=== PATIENT | female | born 1940 | race Caucasian/White ===

== ENCOUNTER 2016-12-05 12:25 | Inpatient (IN) ==
[2016-12-05] MEDS ORDERED: methylPREDNISolone SOD SUC 125 MG/2 ML VIAL IV STA (12:53)
[2016-12-05] MEDS ORDERED: FUROSEMIDE 100 MG/10 ML VIAL IV STA (12:53)
--- NOTE | 2016-12-05 12:56 | EKG Report ---
Stationary ECG Study [facility] Test Date: 12/05/2016 12:53:08 PM Pat Name: RUTHANN EPPERSON Department: Room: Gender: F Senior Engineering Specialist: : 1940 Requested by: German Jamil Order Number: [id number] Reading MD: SRINIVAS BLEVINS Intervals [place] Rate: 67 P: 55 NV: 173 QRS: 58 QRSD: 146 T: 170 QT: 416 QTc: 432 Interpretive Statements ELECTRONIC VENTRICULAR PACEMAKER Electronically Signed On 12-06-16 18:55:06 CDT by SRINIVAS BLEVINS [email or web address]
--- NOTE | 2016-12-05 12:57 | Emergency Department Note ---
Arrival - Arrival Chief Complaint: Shortness of Breath Stated Complaint: shortness of breath ED Nursing Triage Note: Brought in per EMS from [facility] with c/o shortness of breath onset this am. prison staff reports 5 pound weight gain since last pm. Denies pain. Was discharged from hospital one week ago--hospitalized with pneumonia/CHF. Mode of Arrival: Stretcher Limitations: No Limitations Source: Patient, RN Notes Reviewed Time Seen by Provider: 12/05/16 12:49 - History of Present Illness HPI Narrative: Patient is a 76-year-old white female sent from [facility] in [place] for evaluation of shortness of breath. Patient states that she has been short of breath for 1-2 weeks. She has a cough which is nonproductive. She denies chest pain. She has difficulty with exertion bringing on shortness of breath. She denies chills or fever. She is to be a relatively heavy smoker until several months ago. The patient denies nausea or vomiting. She denies diaphoresis. Onset (ago): week(s) (2) Date of Last Menstrual Period: PM Allergies/Adverse Reactions: Allergies Allergy/AdvReac Type Severity Reaction Status Date / Time Gatifloxacin [From Tequin] Allergy Mild Dizziness Verified 12/05/16 12:36 trandolapril Allergy Mild Dizziness Verified 12/05/16 12:36 Verapamil Allergy Mild Dizziness Verified 12/05/16 12:36 Home Medications: Home Medications Medication Instructions Recorded Confirmed Type Calcium (Citrate) [Citracal] 600 mg PO BID 07/06/15 12/05/16 History Multivitamin [One Daily] 1 each PO DAILY 07/06/15 12/05/16 History Potassium Chloride [Klor-Con M20] 10 meq PO DAILY 10/21/15 12/05/16 History Apixaban [Eliquis] 2.5 mg PO BID 10/11/16 12/05/16 History Atorvastatin [Lipitor] 20 mg PO DAILY 10/11/16 12/05/16 History Acetaminophen Tab [Tylenol Tab] 325 mg PO Q4H PRN #0 tablet 10/15/16 12/05/16 Rx Carvedilol 6.25 mg PO BID #0 10/15/16 12/05/16 Rx Docusate Sodium Cap [Colace Cap] 100 mg PO BID capsule 10/15/16 12/05/16 Rx Furosemide 40 mg PO DAILY #0 10/15/16 12/05/16 Rx Pantoprazole Tab [Protonix Tab] 40 mg PO DAILY tablet 10/15/16 12/05/16 Rx Spironolactone [Aldactone] 25 mg PO DAILY #30 tablet 11/21/16 12/05/16 Rx Review of System - Review of System ROS unobtainable: due to dementia 12 point system: reviewed and no additional remarkable complaints except as stated - Review of System Constitutional: Absent: chills, fever Respiratory: Present: cough, respiratory distress, wheezing Cardiovascular: Absent: chest pain, palpitations Gastrointestinal: Absent: abdominal pain, nausea, vomiting Medical,Surgical,& Family Hx - Medical History Cardio: History of: CHF, Hypertension, Pacemaker, Cardiovascular Problems (DR ESPINOZA, MEDICAL RECORD HAS [employer] DR NGO FOLLOWING) Neurology: History of: Cerebrovascular Accident No history of: Seizures HEENT: History of: Eye Problem (GLASSES), Dental Problems Endocrine: History of: Dyslipidemia, Thyroid Disorder Respiratory: History of: COPD Genitourinary: History of: Bladder Problem Gastrointestinal: History of: Liver Problems (LIVER MASS, LIVER CIRRHOSIS) Musculoskeletal: History of: Back/Neck Problems (4 BROKEN VERTEBRAE), Osteoporosis, Musculoskeletal Problems (BROKEN RIGHT HIP) - Surgical History HEENT Surgeries: Surgical HX of: Thyroid Surgery (PARATHYROID REMOVED) Abdominal Surgeries: Surgical HX of: Abdominal Surgery, Appendectomy, Colonoscopy Reproductive Surgeries: Surgical HX of;: Gynecologic Surgery, Hysterectomy Orthopedic Surgeries: Surgical HX of;: Orthopedic Surgery (ORIF of right femur fracture), Total Knee Replacement (LEFT KNEE) - Family History Family History: Reports;: Family Cancer (MOTHER) - Social History Smoking Status: Former smoker Frequency of Alcohol Use: None Type of Drug Use: None Functional capacity: wheelchair bound Exam Vital Signs: Vital Signs Temperature 97.5 F L 12/05/16 12:25 Pulse Rate 84 12/05/16 12:25 Respiratory Rate 26 H 12/05/16 12:25 Blood Pressure 117/72 12/05/16 12:25 O2 Sat by Pulse Oximetry 97 12/05/16 12:25 GENERAL: This is a chronically ill-appearing white female in no apparent distress. VITAL SIGNS: Reviewed HEENT: Temporal wasting is present. Pupils are equal round react to light. Extraocular movements are intact. Oropharynx is benign with moist mucous membranes. NECK: Neck is soft and supple without tenderness. There are no masses. There is no lymphadenopathy. LUNGS: Expiratory wheezes in all lung subramanian with prolongation of expiratory phase. Chest rises symmetrically. There is no chest wall tenderness. CV: Heart is regular rate and rhythm without murmurs rubs or gallops. ABDOMEN: Abdomen is soft, nontender to palpation. There are no abdominal abnormal masses palpated. Liver edge is palpable about 2 fingerbreadths below the right costal margin. Bowel sounds are present and active. SKIN: Skin is warm and dry. No rash. EXTREMITIES: Patient has full range of motion without tenderness. There is 1+ pitting pedal edema. NEUROLOGIC: Awake alert and oriented to person and situation. Patient is disoriented to place and time. Cranial nerves II through XII are grossly intact. Motor is 4 over 5 in all extremities bilaterally. Course - Consultations Consultation #1: Discussed with hospitalist. Patient will be admitted to their service. Time: 13:57 Results - Labs CBC & BMP: 12/05/16 12:41 12/05/16 12:41 Lab Results: I have reviewed the patients labs Labs: Laboratory Tests 12/05/16 12/05/16 12:41 13:09 ABG pH 7.397 ABG pCO2 39.5 ABG pO2 119.0 H ABG HCO3 24.1 ABG Total CO2 22.3 L ABG O2 Saturation 98.9 ABG Base Excess -0.4 Magnesium 1.9 Troponin I 0.066 H Laboratory Tests 12/05/16 12/05/16 12:41 12:41 Troponin I 0.066 H B-Natriuretic Peptide 1041 H - EKG EKG results: interpreted by ERMD - Impressions EKG: Electronic ventricular pacemaker with a rate of 67 no further interpretation possible. - Diagnostic Findings Procedure: Chest x-ray: image reviewed by me (Increased pulmonary markings bilaterally with bilateral pleural effusions) Disposition Clinical Impression: Congestive heart failure Case discussed with: patient Condition: Stable Time of Disposition: 13:57
[2016-12-05] MEDS ORDERED: ALBUTEROL 2.5 MG/3 ML NEB RESP TX SCH (13:00)
[2016-12-05 13:04] LABS: Basophils % 0.4 % (0.0-0.8); Eosinophils # 0.3 10*3/uL (0.0-0.87); Eosinophils % 4.9 % (0.00-10.9); Hematocrit 30.1 VOL% (35.7-47.0); Hemoglobin 9.6 GM/DL (12.0-16.0); Immature Granulocytes % 0.4 %; Immature Granulocytes Absolute 0.02 #; Lymphocytes # 1.3 10*3/uL (1.4-4.0); Lymphocytes % 24.1 % (21.3-54.2); Mean Corpuscular HGB Conc 31.9 GM/DL (32-36); Mean Corpuscular Hemoglobin 32 PG (27-34); Mean Corpuscular Volume 99.7 FL (87-102); Mean Platelet Volume 11.1 FL (9.6-12.0); Monocytes # 0.6 10*3/uL (0.11-0.8); Monocytes % 11.8 % (1.7-12.7); Neutrophils # 3.1 10*3/uL (1.4-7.4); Neutrophils % 58.4 % (38.7-73.9); Platelet Count 80 T/CUMM (130-400); Red Blood Count 3.02 MC/CUMM (3.8-5.5); Red Cell Distribution Width 17.5 % (9.3-17.3); White Blood Count 5.3 T/CUMM (4-12)
[2016-12-05 13:07] LABS: INR 1.2; PT Patient Result 12.8 SECS; Partial Thromboplastin Time 32.6 SECS (0-40)
--- NOTE | 2016-12-05 13:12 | XRay Report ---
Portable chest. Indication: Shortness of breath. Comparison: November 18, 2016. The heart borders are not well-defined. The heart is probably normal in size. Cardiac hardware appears to be in satisfactory position. There is uncoiling of the thoracic aorta with calcification in the aortic knob. The right hilum is mildly prominent. Right-sided adenopathy cannot be excluded. There are bilateral basilar infiltrates and pleural effusions. The pulmonary vasculature is prominent. There are bilateral rib fractures and degenerative changes are seen at the right shoulder. Impression: Worsening findings which may be related to congestive heart failure. PROCEDURE INTERPRETED AT [facility] DEPARTMENT OF RADIOLOGY Final Report Signed by: Dr. Suyapa Fernandez
[2016-12-05 13:14] LABS: ABG Base Excess -0.4 MMOL/L (-2.5-2.5); ABG HCO3 24.1 MMOL/L (20-26); ABG Oxygen Saturation 98.9 % (95-100); ABG PCO2 39.5 MM HG (35-48); ABG PH 7.397 (7.35-7.45); ABG TCO2 22.3 MMOL/L (23-27)
[2016-12-05 13:17] LABS: Magnesium 1.9 MG/DL (1.8-2.4)
[2016-12-05 13:18] LABS: Troponin I Only 0.066 NG/ML (0.00-0.045)
[2016-12-05] MEDS ORDERED: ENOXAPARIN 60 MG/0.6 ML SYRINGE SUBCUT STA (13:27)
[2016-12-05] MEDS ORDERED: ASPIRIN 325 MG TABLET PO STA (13:27)
[2016-12-05 13:47] LABS: Albumin 2.3 G/DL (3.4-5.0); Calcium 8.3 MG/DL (8.5-10.1); Osmolality,Calculated 290.7 MOS/KG (273-304); Potassium 4.6 MMOL/L (3.5-5.1); Total Protein 6.4 G/DL (6.4-8.3)
[2016-12-05] MEDS ORDERED: FUROSEMIDE 40 MG/4 ML VIAL ONE (13:59)
[2016-12-05] MEDS ORDERED: ENOXAPARIN 60 MG/0.6 ML SYRINGE ONE (13:59)
[2016-12-05] MEDS ORDERED: FUROSEMIDE 20 MG/2 ML VIAL ONE (13:59)
[2016-12-05] MEDS ORDERED: ASPIRIN 325 MG TABLET ONE (14:00)
[2016-12-05] MEDS ORDERED: methylPREDNISolone SOD SUC 125 MG/2 ML VIAL ONE (14:00)
--- NOTE | 2016-12-05 14:31 | Hospitalist History & Physical ---
<Janet Garza - Last Filed: 12/05/16 14:34> Assessment and Plan (1) Congestive heart failure Status: Acute Assessment and plan: We will diurese; insert saha catheter for accurate intake and output. We will obtain Echo to assess heart function. Will start VTE prophylaxis. Current Visit: Yes (2) Hypertension Status: Chronic Assessment and plan: Will monitor and manage. Current Visit: No (3) Elevated troponin Status: Acute Assessment and plan: Troponin 0.006 at admission. We will obtain serial cardiac enzymes; if positive ; we will consult cardiology. Current Visit: No History of Present Illness Chief complaint: shortness of breath History of present illness: This is a very unfortunate 76 year old female that presented to the ED at [facility] from [facility] for evaluation of shortness of breath. The patient has a rather impressive medical history significant for cerebral vascular accident, atrial fibrillation, chronic obstructive pulmonary disease, congestive heart failure, dyslipidemia, hypertension, abdominal aortic aneurysm, osteoporosis, and liver cirrhosis. She was a past surgical history of left total knee replacement, appendectomy, CLAY of the right femur, and parathyroidectomy. The [facility] staff reported an acute onset of symptoms on this morning. In addition, the staff reported a marked increase of weight overnight of 5 pounds. At the time of presentation, labs were obtained which revealed a BUN of 54 and creatinine of 1.50 and BNP of 1041. Her cardiac enzymes were elevated at 0.066. Chest radiograph was obtained which revealed increased pulmonary markings bilaterally with bilateral pleural effusions. She was given Lasix and breathing treatments in the ED. In addition, the patient was noted to have pitting edema and wheezing through the lung subramanian bilaterally. After brief discussion with Dr. Bright and Dr. Carias, the patient will be admitted to the hospitalist service for continuation of care. Home Medications Medication Instructions Recorded Confirmed Type Calcium (Citrate) [Citracal] 600 mg PO BID 07/06/15 12/05/16 History Multivitamin [One Daily] 1 each PO DAILY 07/06/15 12/05/16 History Potassium Chloride [Klor-Con M20] 10 meq PO DAILY 10/21/15 12/05/16 History Apixaban [Eliquis] 2.5 mg PO BID 10/11/16 12/05/16 History Atorvastatin [Lipitor] 20 mg PO DAILY 10/11/16 12/05/16 History Acetaminophen Tab [Tylenol Tab] 325 mg PO Q4H PRN #0 tablet 10/15/16 12/05/16 Rx Carvedilol 6.25 mg PO BID #0 10/15/16 12/05/16 Rx Docusate Sodium Cap [Colace Cap] 100 mg PO BID capsule 10/15/16 12/05/16 Rx Furosemide 40 mg PO DAILY #0 10/15/16 12/05/16 Rx Pantoprazole Tab [Protonix Tab] 40 mg PO DAILY tablet 10/15/16 12/05/16 Rx Spironolactone [Aldactone] 25 mg PO DAILY #30 tablet 11/21/16 12/05/16 Rx Allergies Allergy/AdvReac Type Severity Reaction Status Date / Time Gatifloxacin [From Tequin] Allergy Mild Dizziness Verified 12/05/16 12:36 trandolapril Allergy Mild Dizziness Verified 12/05/16 12:36 Verapamil Allergy Mild Dizziness Verified 12/05/16 12:36 Medical,Surgical,& Family Hx - Medical History Cardio: History of: CHF, Hypertension, Pacemaker, Cardiovascular Problems (DR ESPINOZA, MEDICAL RECORD HAS [employer] DR NGO FOLLOWING) Neurology: History of: Cerebrovascular Accident No history of: Seizures HEENT: History of: Eye Problem (GLASSES), Dental Problems Endocrine: History of: Dyslipidemia, Thyroid Disorder Respiratory: History of: COPD Genitourinary: History of: Bladder Problem Gastrointestinal: History of: Liver Problems (LIVER MASS, LIVER CIRRHOSIS) Musculoskeletal: History of: Back/Neck Problems (4 BROKEN VERTEBRAE), Osteoporosis, Musculoskeletal Problems (BROKEN RIGHT HIP) - Surgical History HEENT Surgeries: Surgical HX of: Thyroid Surgery (PARATHYROID REMOVED) Abdominal Surgeries: Surgical HX of: Abdominal Surgery, Appendectomy, Colonoscopy Reproductive Surgeries: Surgical HX of;: Gynecologic Surgery, Hysterectomy Orthopedic Surgeries: Surgical HX of;: Orthopedic Surgery (ORIF of right femur fracture), Total Knee Replacement (LEFT KNEE) - Family History Family History: Reports;: Family Cancer (MOTHER) - Social History Smoking Status: Former smoker Frequency of Alcohol Use: None Type of Drug Use: None 12 point system: reviewed and no additional remarkable complaints except as stated Exam - Constitutional Vitals: Period Temp Pulse Resp BP Sys/Andino Pulse Ox Last 24 Hr 97.5 F 84 26 117/72 97 General appearance: normal weight, no acute distress - Head Head exam: Present: normal inspection, normocephalic, atraumatic - Eye Eye exam: Present: EOMI. Absent: conjunctival injection, nystagmus Pupils: Present: NILE, normal accommodation - ENT ENT exam: Present: normal exam, normal external ear exam, normal oropharynx - Neck Neck exam: Present: normal inspection. Absent: lymphadenopathy, meningismus, tenderness, thyromegaly - Respiratory Respiratory exam: Present: accessory muscle use, wheezes - Cardiovascular Cardiovascular exam: Present: irregular rhythm (atrial fib/ rate controlled) - GI/Abdominal GI/Abdominal exam: Present: normal bowel sounds, soft - Extremities Exam Extremities exam: Present: edema (+3 edema noted to bilateral lower extremeties) - Back Exam Back exam: Present: normal inspection - Neurological Exam Neurological exam: Present: alert, altered - Psychiatric Psychiatric exam: Present: normal affect - Skin Skin exam: Present: normal color Results - Labs CBC & BMP: 12/05/16 12:41 12/05/16 12:41 Lab Results: I have reviewed the past 24 hour labs Quality Measures - VTE Deep Vein Thrombosis/Pulmonary Embolism Present on Admission: No <Arsh Carias - Last Filed: 12/05/16 16:39> History of Present Illness History of present illness: Patient seen and examined along with IT ARCHITECTURE CONSULTANT Greg, agree with history, assessment and plan as documented. Patient was admitted last month with pretty much this same picture. She reports 1-2 weeks of sob, with worsening today. She has chronic ble edema, she does not know if this is different. snf reports 5 pound weight gain since yesterday. On exam, lungs are clear and significant ble edema. CXR with pulmonary infiltrates/edema. Will give lasix 40 BID IV. Will not start abx today, pt afebrile with no leukocytosis. Repeat CXR in am, if not better might consider antibiotics. Exam - Constitutional Vitals: Period Temp Pulse Resp BP Sys/Andino Pulse Ox Last 24 Hr 98.8 F 76 22-26 161/80 95 Results - Labs CBC & BMP: 12/05/16 12:41 12/05/16 12:41
[2016-12-05 15:36] LABS: Apearance,Urine CLEAR (Clear); Bilirubin,Urine Negative (Negative); Blood, Urine Negative (Negative); Glucose,Urine (UA) Negative (Negative); Ketones,Urine Negative (Negative); Nitrite,Urine Negative (Negative); Protein,Urine Negative; RBC,Urine 1 /HPF (0-4); Urine Color Yellow (Yellow); Urine Urobilinogen < 2.0 EU/DL (0.2-1.0); WBC,Urine 3 /HPF (0-6)
[2016-12-05] MEDS ORDERED: ACETAMINOPHEN 325 MG TABLET PO PRN (16:32)
[2016-12-05] MEDS: CALCIUM (CITRATE) 200 MG TABLET PO SCH (22:41)
[2016-12-05] MEDS: DOCUSATE SODIUM 100 MG CAPSULE PO SCH (22:41)
[2016-12-05] MEDS: APIXABAN 2.5 MG TABLET PO SCH (22:42)
[2016-12-05] MEDS: CARVEDILOL 6.25 MG TABLET PO SCH (22:47)
[2016-12-06 04:21] LABS: Hematocrit 25.3 VOL% (35.7-47.0); Hemoglobin 8.3 GM/DL (12.0-16.0); Immature Granulocytes % 0.3 %; Immature Granulocytes Absolute 0.01 #; Lymphocytes # 0.8 10*3/uL (1.4-4.0); Lymphocytes % 20.3 % (21.3-54.2); Mean Corpuscular HGB Conc 32.8 GM/DL (32-36); Mean Corpuscular Hemoglobin 32 PG (27-34); Mean Corpuscular Volume 96.9 FL (87-102); Mean Platelet Volume 11.4 FL (9.6-12.0); Monocytes # 0.2 10*3/uL (0.11-0.8); Monocytes % 6.2 % (1.7-12.7); Neutrophils # 2.7 10*3/uL (1.4-7.4); Neutrophils % 73.2 % (38.7-73.9); Platelet Count 86 T/CUMM (130-400); Red Blood Count 2.61 MC/CUMM (3.8-5.5); Red Cell Distribution Width 17.7 % (9.3-17.3); White Blood Count 3.7 T/CUMM (4-12)
[2016-12-06 04:44] LABS: Band Neutrophils 3 % (0-10); Lymphocytes 13 % (20-55); Platelet Estimate Decreased; Segmented Neutrophils 77 % (50-85); Total Cells Counted 100
[2016-12-06 04:45] LABS: Hypochromasia 2+
[2016-12-06 04:51] LABS: Albumin 2.1 G/DL (3.4-5.0); Bilirubin,Total 1.5 MG/DL (0.2-1.0); Magnesium 1.9 MG/DL (1.8-2.4); Osmolality,Calculated 296.5 MOS/KG (273-304); Phosphorous 2.8 MG/DL (2.5-4.9); Potassium 4.5 MMOL/L (3.5-5.1)
--- NOTE | 2016-12-06 08:45 | Hospitalist Progress Note ---
Assessment and Plan (1) Diastolic CHF, acute on chronic Status: Acute Assessment and plan: Impression: 1. Diastolic CHF, acute on chronic 2. Pancytopenia, likely due to known diagnosis of cirrhosis 3. Atrial fibrillation, status post pacemaker Plan: Continue diuresis as she tolerates. She is already azotemic. Revise medications. Will need to discuss CODE STATUS with family members. This note was completed using [employer] voice recognition software. There may be database management specialist errors as a result. Current Visit: Yes Hospitalist: Subjective Interval history: Follow-up probable acute episode of diastolic congestive heart failure. Follow-up diastolic congestive heart failure History and physical is reviewed. The patient apparently has numerous chronic medical problems, including prior admissions for similar symptoms. She also is apparently pacemaker dependent, with a history of third-degree heart block. She presented from her local senior care for evaluation of some weight gain and worsening dyspnea. Chest x-ray showed pulmonary vascular congestion. I reviewed her echocardiogram from late last year, and she had a normal ejection fraction. Diastolic dysfunction was not mentioned, but it was mentioned in a cardiology consultation note. 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 Therefore, history taking is difficult. She also apparently is already azotemic, likely due to ongoing diuresis. Chest x- ray from last June was clear, but it looks like she has had pulmonary vascular congestion off and on since then. Exam - Constitutional Vitals: Period Temp Pulse Resp BP Sys/Andino Pulse Ox Last 24 Hr 98.1 F-98.8 F 75-83 20-26 102-161/55-80 95-100 Vital signs are noted above. She is a thin chronically ill white lady. Heart is regular and probably paced. She has a 2/6 systolic ejection murmur. Neck vein distention is evident supine. She has a few rhonchi in the chest. There are multiple scattered ecchymoses. She is awake and attempts conversation, but she has a nonfluent aphasia Results - Labs CBC & BMP: 12/06/16 03:37 12/06/16 03:37 Lab Results: I have reviewed the past 24 hour labs (She appears to have pancytopenia, as well as a chronically elevated BUN and creatinine.) Quality Measures - VTE Deep Vein Thrombosis/Pulmonary Embolism Present on Admission: No
--- NOTE | 2016-12-06 10:12 | XRay Report ---
XR chest 1V portable Indication: COPD Comparison: 05 Dec 2016 Findings: The heart and mediastinum are stable in size and configuration. The pulmonary vascularity is increased with bilateral increased interstitial lung density slightly increased from previous. No other lung infiltrates, effusions, pneumothorax or other abnormality is demonstrated. Impression: Findings suggest increasing cardiac decompensation. PROCEDURE INTERPRETED AT [facility] DEPARTMENT OF RADIOLOGY Final Report Signed by: Dr. Devang Andujar
[2016-12-06] MEDS: FUROSEMIDE 40 MG/4 ML VIAL IV SCH ×2 (10:53→16:52)
[2016-12-06] MEDS: DOCUSATE SODIUM 100 MG CAPSULE PO SCH ×2 (10:54→20:49)
[2016-12-06] MEDS: SPIRONOLACTONE 25 MG TABLET PO SCH (10:54)
[2016-12-06] MEDS: ATORVASTATIN 20 MG TABLET PO SCH (10:54)
[2016-12-06] MEDS: CALCIUM (CITRATE) 200 MG TABLET PO SCH ×2 (10:54→20:49)
[2016-12-06] MEDS: APIXABAN 2.5 MG TABLET PO SCH ×2 (10:55→20:49)
[2016-12-06] MEDS: CARVEDILOL 6.25 MG TABLET PO SCH ×2 (10:55→20:49)
[2016-12-06] MEDS: DESITIN 4OZ/NYSTATIN 15 GRAM MIXTURE PASTE TOP SCH ×2 (14:39→21:43)
[2016-12-07 06:16] LABS: Calcium 8.7 MG/DL (8.5-10.1); Osmolality,Calculated 294.3 MOS/KG (273-304); Potassium 4.3 MMOL/L (3.5-5.1)
[2016-12-07] MEDS ORDERED: FUROSEMIDE 20 MG/2 ML VIAL ONE (09:12)
[2016-12-07] MEDS: FUROSEMIDE 40 MG/4 ML VIAL IV SCH ×2 (09:43→15:36)
[2016-12-07] MEDS: APIXABAN 2.5 MG TABLET PO SCH ×2 (09:43→21:25)
[2016-12-07] MEDS: ATORVASTATIN 20 MG TABLET PO SCH (09:43)
[2016-12-07] MEDS: DOCUSATE SODIUM 100 MG CAPSULE PO SCH ×2 (09:44→21:25)
[2016-12-07] MEDS: CARVEDILOL 6.25 MG TABLET PO SCH ×2 (09:44→21:25)
[2016-12-07] MEDS: SPIRONOLACTONE 25 MG TABLET PO SCH (09:44)
--- NOTE | 2016-12-07 10:39 | Hospitalist Progress Note ---
Assessment and Plan (1) Diastolic CHF, acute on chronic Status: Acute Assessment and plan: Impression: 1. Diastolic CHF, acute on chronic 2. Pancytopenia, likely due to known diagnosis of cirrhosis 3. Atrial fibrillation, status post pacemaker Plan: Continue diuresis as she tolerates. She is already azotemic. Revise medications. Recheck lab in the morning. This note was completed using [employer] voice recognition software. There may be hog sticker errors as a result. Current Visit: Yes Hospitalist: Subjective Interval history: Follow-up acute on chronic diastolic congestive heart failure, cirrhosis, and malnutrition. The patient says that her dyspnea is a little better. She continues on IV diuretics. She denies any chest discomfort. Exam - Constitutional Vitals: Period Temp Pulse Resp BP Sys/Andino Pulse Ox Last 24 Hr 97.3 F-98.5 F 58-88 19-22 105-142/53-70 94-100 Vital signs are noted above. Heart is regular with distant tones and no murmur. She has rales in both bases. Abdomen is protuberant with positive bowel sounds. She does not have any significant peripheral edema. She is awake and alert. Results - Labs CBC & BMP: 12/06/16 03:37 12/07/16 05:09 Lab Results: I have reviewed the past 24 hour labs (Kidney function is stable) Quality Measures - VTE Deep Vein Thrombosis/Pulmonary Embolism Present on Admission: No
[2016-12-07] MEDS: CALCIUM (CITRATE) 200 MG TABLET PO SCH ×2 (12:18→21:25)
[2016-12-07] MEDS: DESITIN 4OZ/NYSTATIN 15 GRAM MIXTURE PASTE TOP SCH ×2 (12:18→21:25)
[2016-12-08 07:29] LABS: Calcium 8.7 MG/DL (8.5-10.1); Osmolality,Calculated 294.1 MOS/KG (273-304); Potassium 4.6 MMOL/L (3.5-5.1)
[2016-12-08] MEDS: ATORVASTATIN 20 MG TABLET PO SCH (09:10)
[2016-12-08] MEDS: SPIRONOLACTONE 25 MG TABLET PO SCH (09:10)
[2016-12-08] MEDS: CARVEDILOL 6.25 MG TABLET PO SCH ×2 (09:10→20:58)
[2016-12-08] MEDS: APIXABAN 2.5 MG TABLET PO SCH ×2 (09:10→20:58)
[2016-12-08] MEDS: DOCUSATE SODIUM 100 MG CAPSULE PO SCH ×2 (09:10→20:58)
[2016-12-08] MEDS: FUROSEMIDE 40 MG/4 ML VIAL IV SCH ×2 (09:17→17:17)
[2016-12-08] MEDS: CALCIUM (CITRATE) 200 MG TABLET PO SCH ×2 (09:18→20:58)
[2016-12-08] MEDS: DESITIN 4OZ/NYSTATIN 15 GRAM MIXTURE PASTE TOP SCH ×2 (09:18→20:59)
--- NOTE | 2016-12-08 11:49 | Hospitalist Progress Note ---
Assessment and Plan (1) Diastolic CHF, acute on chronic Status: Acute Assessment and plan: Impression: 1. Diastolic CHF, acute on chronic 2. Pancytopenia, likely due to known diagnosis of cirrhosis 3. Atrial fibrillation, status post pacemaker Plan: Continue diuresis as she tolerates. She is already azotemic. Recheck chest x- ray in the morning. This note was completed using [employer] voice recognition software. There may be packing house laborer errors as a result. Current Visit: Yes Hospitalist: Subjective Interval history: Follow-up acute on chronic diastolic heart failure, pancytopenia, atrial fibrillation. The patient continues with what appears to be some dyspnea at rest. 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 Chest x-ray from the other day showed worsening pulmonary vascular congestion despite diuresis with 2 diuretics Exam - Constitutional Vitals: Period Temp Pulse Resp BP Sys/Andino Pulse Ox Last 24 Hr 97.6 F-98.9 F 60-63 16-20 107-129/54-73 95-98 Vital signs are noted above. Heart is regular with a soft systolic murmur. I do not hear a gallop. She has neck vein distention at 30. She has scattered rales. I could not get her to set up for examination of the posterior lung subramanian. Abdomen is protuberant. She is awake and attempts conversation Results - Labs CBC & BMP: 12/06/16 03:37 12/08/16 04:29 Quality Measures - VTE Deep Vein Thrombosis/Pulmonary Embolism Present on Admission: No
[2016-12-09 07:13] LABS: Calcium 9.3 MG/DL (8.5-10.1); Potassium 4.1 MMOL/L (3.5-5.1)
--- NOTE | 2016-12-09 08:25 | XRay Report ---
XR chest 1V portable Indication: Pleural effusion Comparison: Chest x-ray dated December 06, 2016 Technique: Single frontal view of the chest Findings: Cardiomediastinal silhouette is stable in configuration. Cardiac pacemaker apparatus again noted. Interval progressed atelectasis/consolidation within the left lower lung as well as within the right lung base with probable small left pleural fluid. Osseous and surrounding soft tissue structures appear grossly unchanged. Osteopenia and old right-sided rib fractures noted. IMPRESSION: As above. PROCEDURE INTERPRETED AT [facility] DEPARTMENT OF RADIOLOGY Final Report Signed by: Dr Shane Calhoun
[2016-12-09] MEDS: FUROSEMIDE 40 MG/4 ML VIAL IV SCH ×2 (08:40→16:48)
[2016-12-09] MEDS: APIXABAN 2.5 MG TABLET PO SCH ×2 (08:42→20:46)
[2016-12-09] MEDS: SPIRONOLACTONE 25 MG TABLET PO SCH (08:42)
[2016-12-09] MEDS: CALCIUM (CITRATE) 200 MG TABLET PO SCH ×2 (08:42→20:46)
[2016-12-09] MEDS: ATORVASTATIN 20 MG TABLET PO SCH (08:42)
[2016-12-09] MEDS: CARVEDILOL 6.25 MG TABLET PO SCH ×2 (08:42→20:46)
[2016-12-09] MEDS: DOCUSATE SODIUM 100 MG CAPSULE PO SCH ×2 (08:43→20:46)
[2016-12-09] MEDS: DESITIN 4OZ/NYSTATIN 15 GRAM MIXTURE PASTE TOP SCH ×2 (08:47→20:48)
--- NOTE | 2016-12-09 17:20 | Hospitalist Progress Note ---
Assessment and Plan - Time spent with patient Time spent with patient: Greater than 30 minutes (1) Diastolic CHF, acute on chronic Status: Acute Assessment and plan: Continue diuresis patient is tolerating well. Current Visit: Yes (2) Paroxysmal atrial fibrillation Status: Chronic Assessment and plan: Continue anti-coagulation. Current Visit: No (3) Thrombocytopenia Status: Chronic Assessment and plan: Stable. Current Visit: No Hospitalist: Subjective Interval history: She has no complaints this morning and states her breathing is back to normal. Exam - Constitutional Vitals: Period Temp Pulse Resp BP Sys/Andino Pulse Ox Last 24 Hr 97.7 F-99.4 F 60-64 20-20 108-128/56-64 92-100 General appearance: no acute distress - Head Head exam: Present: normocephalic, atraumatic - Eye Eye exam: Present: EOMI Pupils: Present: NILE - ENT ENT exam: Present: normal exam - Neck Neck exam: Present: normal inspection - Respiratory Respiratory exam: Present: clear to auscultation bilaterally. Absent: rhonchi, wheezes - Cardiovascular Cardiovascular exam: Present: regular rate and rhythm. Absent: gallop, rubs, systolic murmur - GI/Abdominal GI/Abdominal exam: Present: normal bowel sounds, soft. Absent: distended, firm , guarding, tenderness, rebound - Extremities Exam Extremities exam: Present: normal inspection. Absent: calf tenderness, edema Results - Labs CBC & BMP: 12/06/16 03:37 12/09/16 04:36 Lab Results: I have reviewed the past 24 hour labs Quality Measures - VTE Deep Vein Thrombosis/Pulmonary Embolism Present on Admission: No
[2016-12-09 17:35] LABS: Apearance,Urine CLOUDY (Clear); Bilirubin,Urine Negative (Negative); Blood, Urine Moderate mg/dL (Negative); Glucose,Urine (UA) Negative (Negative); Ketones,Urine Negative (Negative); Nitrite,Urine Positive (Negative); Protein,Urine 30 MG/DL; RBC,Urine 14 /HPF (0-4); Urine Color Yellow (Yellow); Urine Specific Gravity 1.006 (1.001-1.035); Urine Urobilinogen < 2.0 EU/DL (0.2-1.0); WBC,Urine 2452 /HPF (0-6)
[2016-12-10 06:23] LABS: Basophils % 0.3 % (0.0-0.8); Eosinophils # 0.5 10*3/uL (0.0-0.87); Eosinophils % 7.5 % (0.00-10.9); Hematocrit 30.1 VOL% (35.7-47.0); Hemoglobin 9.8 GM/DL (12.0-16.0); Immature Granulocytes % 0.3 %; Immature Granulocytes Absolute 0.02 #; Lymphocytes # 1.6 10*3/uL (1.4-4.0); Lymphocytes % 25.3 % (21.3-54.2); Mean Corpuscular HGB Conc 32.6 GM/DL (32-36); Mean Corpuscular Hemoglobin 32 PG (27-34); Mean Corpuscular Volume 96.8 FL (87-102); Mean Platelet Volume 12.7 FL (9.6-12.0); Monocytes # 0.8 10*3/uL (0.11-0.8); Monocytes % 12.3 % (1.7-12.7); Neutrophils # 3.5 10*3/uL (1.4-7.4); Neutrophils % 54.3 % (38.7-73.9); Platelet Count 82 T/CUMM (130-400); Red Blood Count 3.11 MC/CUMM (3.8-5.5); White Blood Count 6.4 T/CUMM (4-12)
[2016-12-10 06:47] LABS: Hypochromasia 1+; Target Cells Slight
[2016-12-10 06:58] LABS: Calcium 9.6 MG/DL (8.5-10.1); Osmolality,Calculated 295.1 MOS/KG (273-304); Potassium 4.1 MMOL/L (3.5-5.1)
[2016-12-10] MEDS ORDERED: FUROSEMIDE 40 MG/4 ML VIAL IV ONE (09:18)
[2016-12-10] MEDS: SPIRONOLACTONE 25 MG TABLET PO SCH (09:55)
[2016-12-10] MEDS: CALCIUM (CITRATE) 200 MG TABLET PO SCH ×2 (09:55→21:05)
[2016-12-10] MEDS: DOCUSATE SODIUM 100 MG CAPSULE PO SCH ×2 (09:55→21:06)
[2016-12-10] MEDS: CARVEDILOL 6.25 MG TABLET PO SCH ×2 (09:55→21:06)
[2016-12-10] MEDS: APIXABAN 2.5 MG TABLET PO SCH ×2 (09:55→21:06)
[2016-12-10] MEDS: ATORVASTATIN 20 MG TABLET PO SCH (09:55)
[2016-12-10] MEDS: DESITIN 4OZ/NYSTATIN 15 GRAM MIXTURE PASTE TOP SCH ×2 (09:56→21:06)
[2016-12-10] MEDS: FUROSEMIDE 40 MG/4 ML VIAL IV SCH (13:50)
--- NOTE | 2016-12-10 15:43 | Hospitalist Progress Note ---
Assessment and Plan - Time spent with patient Time spent with patient: Greater than 30 minutes (1) Diastolic CHF, acute on chronic Status: Acute Assessment and plan: Continue diuresis patient is tolerating well. Current Visit: Yes (2) Paroxysmal atrial fibrillation Status: Chronic Assessment and plan: Continue anti-coagulation. Current Visit: No (3) Thrombocytopenia Status: Chronic Assessment and plan: Stable. Current Visit: No (4) UTI (urinary tract infection) Status: Acute Assessment and plan: Start antibiotics. Current Visit: Yes Hospitalist: Subjective Interval history: No complaints or overnight events. Exam - Constitutional Vitals: Period Temp Pulse Resp BP Sys/Andino Pulse Ox Last 24 Hr 97.9 F-99.5 F 60-60 18-20 108-132/62-84 91-96 General appearance: no acute distress - Head Head exam: Present: normocephalic, atraumatic - Eye Eye exam: Present: EOMI Pupils: Present: NILE - ENT ENT exam: Present: normal exam - Neck Neck exam: Present: normal inspection - Respiratory Respiratory exam: Present: clear to auscultation bilaterally. Absent: rhonchi, wheezes - Cardiovascular Cardiovascular exam: Present: regular rate and rhythm. Absent: gallop, rubs, systolic murmur - GI/Abdominal GI/Abdominal exam: Present: normal bowel sounds, soft. Absent: distended, firm , guarding, tenderness, rebound - Extremities Exam Extremities exam: Present: normal inspection. Absent: calf tenderness, edema Results - Labs CBC & BMP: 12/10/16 04:06 12/10/16 04:06 Lab Results: I have reviewed the past 24 hour labs Quality Measures - VTE Deep Vein Thrombosis/Pulmonary Embolism Present on Admission: No
[2016-12-10] MEDS: cefTRIAXone 2,000 MG in SODIUM CHLORIDE 0.9% 100 ML IV SCH (17:21)
[2016-12-11 04:38] LABS: Basophils % 0.3 % (0.0-0.8); Eosinophils # 0.5 10*3/uL (0.0-0.87); Hematocrit 30.1 VOL% (35.7-47.0); Hemoglobin 9.9 GM/DL (12.0-16.0); Immature Granulocytes % 0.3 %; Immature Granulocytes Absolute 0.02 #; Lymphocytes # 1.6 10*3/uL (1.4-4.0); Lymphocytes % 25.6 % (21.3-54.2); Mean Corpuscular HGB Conc 32.9 GM/DL (32-36); Mean Corpuscular Hemoglobin 32 PG (27-34); Mean Corpuscular Volume 98.4 FL (87-102); Monocytes # 0.8 10*3/uL (0.11-0.8); Monocytes % 12.9 % (1.7-12.7); Neutrophils # 3.2 10*3/uL (1.4-7.4); Neutrophils % 52.9 % (38.7-73.9); Red Blood Count 3.06 MC/CUMM (3.8-5.5); Red Cell Distribution Width 17.9 % (9.3-17.3); White Blood Count 6.1 T/CUMM (4-12)
[2016-12-11 04:42] LABS: Platelet Count 88 T/CUMM (130-400)
[2016-12-11 05:07] LABS: Hypochromasia Slight; Macrocytosis 1+
[2016-12-11 05:08] LABS: Platelet Estimate Decreased
[2016-12-11 05:14] LABS: Potassium 3.8 MMOL/L (3.5-5.1)
[2016-12-11] MEDS: DESITIN 4OZ/NYSTATIN 15 GRAM MIXTURE PASTE TOP SCH ×2 (08:30→22:35)
[2016-12-11] MEDS ORDERED: FUROSEMIDE 40 MG TABLET PO SCH (09:00)
[2016-12-11] MEDS: cefTRIAXone 2,000 MG in SODIUM CHLORIDE 0.9% 100 ML IV SCH (09:27)
[2016-12-11] MEDS: APIXABAN 2.5 MG TABLET PO SCH ×2 (09:33→22:30)
[2016-12-11] MEDS: CARVEDILOL 6.25 MG TABLET PO SCH ×2 (09:33→22:36)
[2016-12-11] MEDS: DOCUSATE SODIUM 100 MG CAPSULE PO SCH ×2 (09:33→22:30)
[2016-12-11] MEDS: CALCIUM (CITRATE) 200 MG TABLET PO SCH ×2 (09:33→22:29)
[2016-12-11] MEDS: ATORVASTATIN 20 MG TABLET PO SCH (09:33)
[2016-12-11] MEDS: SPIRONOLACTONE 25 MG TABLET PO SCH (09:33)
--- NOTE | 2016-12-11 13:50 | XRay Report ---
XR chest 1V Indication: SOB Comparison: Chest x-ray dated December 09, 2016 Technique: Single frontal view of the chest Findings: Continued cardiomegaly. Cardiac pacemaker is again noted. Interval development of diffuse opacification throughout the right hemithorax suggesting atelectasis/consolidation and pleural fluid. Interval increased opacification within the left mid and lower lung with probable pleural fluid. Findings suggest worsening pulmonary edema or pneumonia. Osseous structures appear grossly unchanged. IMPRESSION: As above. PROCEDURE INTERPRETED AT [facility] DEPARTMENT OF RADIOLOGY Final Report Signed by: Dr Shane Calhoun
--- NOTE | 2016-12-11 14:27 | Hospitalist Progress Note ---
Assessment and Plan - Time spent with patient Time spent with patient: Greater than 30 minutes (1) Diastolic CHF, acute on chronic Status: Acute Assessment and plan: Lasix witched to oral. Current Visit: Yes (2) Paroxysmal atrial fibrillation Status: Chronic Assessment and plan: Continue anti-coagulation. Current Visit: No (3) Thrombocytopenia Status: Chronic Assessment and plan: Stable. Current Visit: No (4) UTI (urinary tract infection) Status: Acute Assessment and plan: Start antibiotics. Current Visit: Yes (5) Opacity of lung on imaging study Status: Acute Assessment and plan: Will consult Pulmonary. Current Visit: Yes Hospitalist: Subjective Interval history: Patient reports being short of breath. Cxray this morning reveals right lung opacification. Exam - Constitutional Vitals: Period Temp Pulse Resp BP Sys/Andino Pulse Ox Last 24 Hr 97.6 F-99.1 F 60-78 18-24 110-137/57-75 93-95 General appearance: no acute distress - Head Head exam: Present: normocephalic, atraumatic - Eye Eye exam: Present: EOMI Pupils: Present: NILE - ENT ENT exam: Present: normal exam - Neck Neck exam: Present: normal inspection - Respiratory Respiratory exam: Present: decreased breath sounds, other (coarse breath sounds right side). Absent: rhonchi, wheezes - Cardiovascular Cardiovascular exam: Present: regular rate and rhythm. Absent: gallop, rubs, systolic murmur - GI/Abdominal GI/Abdominal exam: Present: normal bowel sounds, soft. Absent: distended, firm , guarding, tenderness, rebound - Extremities Exam Extremities exam: Present: normal inspection. Absent: calf tenderness, edema Results - Labs CBC & BMP: 12/11/16 03:24 12/11/16 03:24 Lab Results: I have reviewed the past 24 hour labs Quality Measures - VTE Deep Vein Thrombosis/Pulmonary Embolism Present on Admission: No
[2016-12-11] MEDS ORDERED: FUROSEMIDE 40 MG/4 ML VIAL IV ONE (17:22)
--- NOTE | 2016-12-11 17:28 | Pulmonology Consult Note ---
Assessment and Plan (1) Pleural effusion Status: Acute Assessment and plan: She has bilateral pleural effusions worse on the right side. Not sure how much of the opacification of the right lung is due to this. Will obtain a noncontrast chest CT and decide whether she needs a thoracentesis or possible bronchoscopy. Current Visit: Yes (2) Congestive heart failure Status: Chronic Assessment and plan: We need to check an echocardiogram to evaluate LV function. I do think she has heart failure. BNP was markedly elevated on admission. Has not been rechecked. She is not getting daily weights. Current Visit: No (3) History of cerebrovascular accident Status: Resolved Assessment and plan: Might have some difficulty with swallowing. Earlier today she was eating normally. Concerned about possible aspiration. Current Visit: No History of Present Illness Chief complaint: Shortness of breath History of present illness: Ms. Higgins is a 76 year old female with a history of previous stroke and congestive heart failure. She came in with bilateral pleural effusions. She was given Lasix. She has not had any dilated weights done. However her last chest x-ray has shown increased opacification of the right lung. She does have some difficulty swallowing and there is question of aspiration. The chest x- ray to me looks like more pleural effusion. We need to get a CT to differentiate. I can tap her if there is significant effusion. Consider bronchoscopy if not but patient is not likely to benefit from a bronchoscopy at this point. Oxygen saturation is gone down to 91% on 2 L we will increase her oxygen. Home Medications Medication Instructions Recorded Confirmed Type Calcium (Citrate) [Citracal] 600 mg PO BID 07/06/15 12/05/16 History Multivitamin [One Daily] 1 each PO DAILY 07/06/15 12/05/16 History Potassium Chloride [Klor-Con M20] 10 meq PO DAILY 10/21/15 12/05/16 History Apixaban [Eliquis] 2.5 mg PO BID 10/11/16 12/05/16 History Atorvastatin [Lipitor] 20 mg PO DAILY 10/11/16 12/05/16 History Acetaminophen Tab [Tylenol Tab] 325 mg PO Q4H PRN #0 tablet 10/15/16 12/05/16 Rx Carvedilol 6.25 mg PO BID #0 10/15/16 12/05/16 Rx Docusate Sodium Cap [Colace Cap] 100 mg PO BID capsule 10/15/16 12/05/16 Rx Furosemide 40 mg PO DAILY #0 10/15/16 12/05/16 Rx Pantoprazole Tab [Protonix Tab] 40 mg PO DAILY tablet 10/15/16 12/05/16 Rx Spironolactone [Aldactone] 25 mg PO DAILY #30 tablet 11/21/16 12/05/16 Rx Allergies Allergy/AdvReac Type Severity Reaction Status Date / Time Gatifloxacin [From Tequin] Allergy Mild Dizziness Verified 12/05/16 12:36 trandolapril Allergy Mild Dizziness Verified 12/05/16 12:36 Verapamil Allergy Mild Dizziness Verified 12/05/16 12:36 ROS unobtainable: due to mental status Exam (Pulmonay) H&P - Constitutional Vitals: Period Temp Pulse Resp BP Sys/Andino Pulse Ox Last 24 Hr 97.6 F-99.1 F 60-62 18-24 110-137/57-75 93-95 Exam: Patient is responsive but confused vital signs normal no fever. Respiratory rate is in the upper 20s. O2 sat 91% on 2 L nasal biprong. Pupils react to light. Throat is clear. Neck supple no bruits. She does have some jugular venous distention. Chest reveals decreased breath sounds on the right side and some dullness. Few rales on both sides. Heart normal rate rhythm no murmurs. Abdomen soft nontender no masses. Extremities no clubbing cyanosis. She does have a trace of edema. Calves nontender. Medical,Surgical,& Family Hx - Medical History Cardio: History of: CHF, Hypertension, Pacemaker, Cardiovascular Problems (DR ESPINOZA, MEDICAL RECORD HAS [facility] FOLLOWING) Neurology: History of: Cerebrovascular Accident No history of: Seizures HEENT: History of: Eye Problem (GLASSES), Dental Problems Endocrine: History of: Dyslipidemia, Thyroid Disorder Respiratory: History of: COPD Genitourinary: History of: Bladder Problem Gastrointestinal: History of: Liver Problems (LIVER MASS, LIVER CIRRHOSIS) Musculoskeletal: History of: Back/Neck Problems (4 BROKEN VERTEBRAE), Osteoporosis, Musculoskeletal Problems (BROKEN RIGHT HIP) - Surgical History HEENT Surgeries: Surgical HX of: Thyroid Surgery (PARATHYROID REMOVED) Abdominal Surgeries: Surgical HX of: Abdominal Surgery, Appendectomy, Colonoscopy Reproductive Surgeries: Surgical HX of;: Gynecologic Surgery, Hysterectomy Orthopedic Surgeries: Surgical HX of;: Orthopedic Surgery (ORIF of right femur fracture), Total Knee Replacement (LEFT KNEE) - Family History Family History: Reports;: Family Cancer (MOTHER) - Social History Smoking Status: Former smoker Frequency of Alcohol Use: None Type of Drug Use: None Results - Labs CBC & BMP: 12/11/16 03:24 12/11/16 03:24 Lab Results: I have reviewed the past 24 hour labs - Diagnostic Findings Procedure: Chest x-ray: image reviewed by me (Bilateral pleural effusions worse on right than left. Increased opacification of the right chest on today's film. ) Quality Measures - VTE Deep Vein Thrombosis/Pulmonary Embolism Present on Admission: No
--- NOTE | 2016-12-11 18:43 | CT Report ---
Referring physician: Yani Kenney MD EXAM: CT chest without contrast DATE: December 11, 2016 COMPARISON: CT abdomen and pelvis June 22, 2015 REASON: Opacified right chest, pleural fluid versus atelectasis TECHNIQUE: Axial images of the chest were obtained without the use of IV contrast. Coronal and sagittal reformatted images were also provided. Total DLP is 303.6 mGy*cm. FINDINGS: Vasculature/Heart: The thoracic aorta is normal in size but tortuous. There is prominent scattered calcified plaque at the arteries. Calcification is seen at the mitral annulus, and there is calcified plaque at the coronary arteries. A pacemaker is in place. The pulmonary arteries are not well evaluated on this noncontrast study. There is mild cardiomegaly, but no significant pericardial effusion is seen. Lymph nodes: Evaluation for adenopathy is limited by the lack of contrast. There are calcified mediastinal and right hilar lymph nodes. No obvious suspicious mediastinal, axillary or left hilar adenopathy is seen. Evaluation for right hilar adenopathy is severely limited. Lower neck: Calcifications are seen at the thyroid bilaterally. Lungs: There is a large amount of right pleural fluid and mild left pleural fluid. There is subsequent collapse of the right lower lobe and partial collapse of the right upper lobe and right middle lobe. Superimposed pneumonia is not excluded. Underlying neoplasm also cannot be excluded. There are also scattered opacities within the left lung, mainly within the left lower lobe. This is most consistent with atelectasis and pulmonary edema, but superimposed pneumonia is also not excluded at the left lung. No pneumothorax is identified. Bones: There is multilevel degenerative change and kyphosis at the thoracic spine. A compression fracture with kyphoplasty/vertebroplasty change is seen at T9. There are also indeterminate age mild compression fractures at L1 and T3. Prominent degenerative change is noted at the right shoulder. There are several remote bilateral rib fractures. Sclerosis is seen at the posterior right ninth and 10th ribs. This is nonspecific but may be related to the rib fractures. Osseous metastatic disease is difficult to exclude, especially in a high-risk patient. Chest wall: There is anasarca at the lower chest wall/abdominal wall. Upper abdomen: There is a 5.3 cm masslike area at the superior aspect of the right hepatic lobe, likely indenting the diaphragm. It is not seen on the prior CT. A poorly visualized lesion is again suspected within the posterior aspect of the right hepatic lobe on image 93. This could represent a neoplastic process. There is also mild ascites within the upper abdomen. IMPRESSION: 1. Large right pleural effusion and small left pleural effusion. 2. There is complete collapse of the right lower lobe and partial collapse of the right upper and middle lobes. Superimposed pneumonia or underlying neoplasm is not excluded. Follow-up is recommended to confirm resolution. 3. There are scattered opacities within the left lung, likely representing atelectasis and pulmonary edema. Pneumonia is also difficult to exclude at the left lung. 4. Mild cardiomegaly. 5. Hepatic lesions are present and could represent a neoplastic process. 6. Sclerosis is seen within the posterior right ninth and 10th ribs. This could be related to remote rib fractures, but osseous metastatic disease is difficult to exclude, especially in a high-risk patient. Further evaluation could be performed with a bone scan. 7. Anasarca and mild ascites. The CT exam was performed using one or more of the following dose reduction techniques: Automated exposure control and adjustment of the mA and/or kV according to patient size. PROCEDURE INTERPRETED AT [facility] DEPARTMENT OF RADIOLOGY Final Report Signed by: Dr. Tyrone Julio
[2016-12-12 06:35] LABS: Basophils % 0.3 % (0.0-0.8); Eosinophils % 0.6 % (0.00-10.9); Hematocrit 35.6 VOL% (35.7-47.0); Hemoglobin 11.5 GM/DL (12.0-16.0); Immature Granulocytes % 0.3 %; Immature Granulocytes Absolute 0.02 #; Lymphocytes # 1.5 10*3/uL (1.4-4.0); Lymphocytes % 22.1 % (21.3-54.2); Mean Corpuscular HGB Conc 32.3 GM/DL (32-36); Mean Corpuscular Hemoglobin 32 PG (27-34); Mean Corpuscular Volume 98.9 FL (87-102); Mean Platelet Volume 12.2 FL (9.6-12.0); Monocytes # 0.6 10*3/uL (0.11-0.8); Monocytes % 8.8 % (1.7-12.7); Neutrophils # 4.6 10*3/uL (1.4-7.4); Neutrophils % 67.9 % (38.7-73.9); Platelet Count 93 T/CUMM (130-400); Red Cell Distribution Width 17.4 % (9.3-17.3); White Blood Count 6.8 T/CUMM (4-12)
[2016-12-12 06:57] LABS: Hypochromasia 1+; Platelet Estimate Decreased
[2016-12-12 06:58] LABS: Elliptocytes Few; Macrocytosis Slight
[2016-12-12 07:03] LABS: Calcium 9.9 MG/DL (8.5-10.1); Osmolality,Calculated 292.3 MOS/KG (273-304); Potassium 4.3 MMOL/L (3.5-5.1)
--- NOTE | 2016-12-12 07:13 | Pulmonology Progress Note ---
Pulmonary - PN: Subj Interval history: This 76-year-old white female has some dementia. She has developed a large right pleural effusion. The CT scan shows it to be very large with compression of the right lung. We will plan thoracentesis this morning. If the lung does not expand with the thoracentesis then I will need to do a bronchoscope tomorrow. CT scan also suggested a liver lesion. This might well be metastatic disease but we do not have any definitive diagnosis as yet. Exam (Progress Note) - Constitutional Vitals: Period Temp Pulse Resp BP Sys/Andino Pulse Ox Last 24 Hr 97.6 F-98.7 F 60-61 18-24 117-161/62-88 91-95 Exam: Patient is alert and somewhat confused. Vital signs normal. O2 sat 95% on nasal oxygen. Respiratory rate is about 28. Pupils were reactive. Throat clear. Neck supple no bruits. Chest reveals decreased to no breath sounds on the right side and dullness throughout the right lung. Left lung shows some dullness of the left base and a few rales. Heart normal rate and rhythm no murmurs. Abdomen soft nontender she does have flank edema. Extremities she has 2+ peripheral edema calves nontender. Results - Labs CBC & BMP: 12/12/16 05:52 12/11/16 03:24 Lab Results: I have reviewed the past 24 hour labs - Diagnostic Findings Procedure: CT - chest: image reviewed by me (Large right pleural effusion with compression of the right lung. Left basilar infiltrates as well and a small left effusion. Probable liver lesion as well.) Assessment and Plan (1) Pleural effusion Status: Acute Assessment and plan: She has bilateral pleural effusions worse on the right side. Not sure how much of the opacification of the right lung is due to this. Will obtain a noncontrast chest CT and decide whether she needs a thoracentesis or possible bronchoscopy. 12/12/2016 has a very large right effusion and small left effusion. Will plan right thoracentesis this morning. I am suspicious of metastatic disease. Current Visit: Yes (2) Congestive heart failure Status: Chronic Assessment and plan: We need to check an echocardiogram to evaluate LV function. I do think she has heart failure. BNP was markedly elevated on admission. Has not been rechecked. She is not getting daily weights. 12/12/2016 she did not respond to diuretics very well. The pleural fluid may all be related to a malignant process. Hopefully we will get an answer from thoracentesis. Echo is pending as well. Current Visit: No (3) History of cerebrovascular accident Status: Resolved Assessment and plan: Might have some difficulty with swallowing. Earlier today she was eating normally. Concerned about possible aspiration. Current Visit: No
--- NOTE | 2016-12-12 07:16 | Operative Note ---
Date of procedure: 12/12/16 (Right thoracentesis) Pre-op diagnosis: Large right pleural effusion malignant versus congestive heart failure Post-op diagnosis: same Procedure: After appropriate time out to be sure we were dealing with Hollie Higgins, the patient was seated on the side of the bed. Her back was prepped with Betadine. An intercostal space was locally anesthetized with Xylocaine in the lower right chest. Her entire right chest was dull to percussion. The catheter with trocar that was provided on the arrow tray was used advanced into the right pleural space. We obtained 1500 mL of slightly cloudy straw-colored fluid without difficulty. It was sent for studies. The catheter was removed. The patient tolerated the procedure well. Chest x-ray is pending Anesthesia: local Surgeon / Physician: Guanako Morfin Estimated blood loss: none Specimens: other (1500 mL slightly cloudy straw-colored fluid) Condition: stable Disposition: floor Results - Labs CBC & BMP: 12/12/16 05:52 12/12/16 05:52 Discharge Plan - Discharge Medications No Action Multivitamin [One Daily] 1 each PO DAILY Calcium (Citrate) [Citracal] 600 mg PO BID Potassium Chloride [Klor-Con M20] 10 meq PO DAILY Atorvastatin [Lipitor] 20 mg PO DAILY Apixaban [Eliquis] 2.5 mg PO BID Docusate Sodium Cap [Colace Cap] 100 mg PO BID capsule Pantoprazole Tab [Protonix Tab] 40 mg PO DAILY tablet Furosemide 40 mg PO DAILY #0 Acetaminophen Tab [Tylenol Tab] 325 mg PO Q4H PRN #0 tablet PRN Reason: fever, headache/body aches Carvedilol 6.25 mg PO BID #0 Spironolactone [Aldactone] 25 mg PO DAILY #30 tablet - Follow Up or Referral - Forms/Instructions
[2016-12-12 08:34] LABS: Lymphocytes,Pleural Fluid 93 %; Monocytes,Pleural Fluid 3 %; Neutrophils,Pleural Fluid 4 %
[2016-12-12 08:35] LABS: RBC,Pleural Fluid 936 T/CUMM
[2016-12-12] MEDS: SPIRONOLACTONE 25 MG TABLET PO SCH (08:45)
[2016-12-12] MEDS: FUROSEMIDE 40 MG/4 ML VIAL IV SCH (08:45)
[2016-12-12] MEDS: CARVEDILOL 6.25 MG TABLET PO SCH ×2 (08:45→22:57)
[2016-12-12] MEDS ORDERED: ALBUMIN 25% 50 GM in PREMIX 1 EACH IV ONE (09:00)
--- NOTE | 2016-12-12 09:00 | XRay Report ---
XR chest 1V Indication: Post thoracentesis Comparison: Chest x-ray dated December 11, 2016 Technique: Frontal views of the chest Findings: Continued cardiomegaly. Mild interval decrease in diffuse bilateral pulmonary opacification suggesting improved pulmonary edema. Improved right pleural effusion which is now moderate in size. Continued small left pleural effusion. Osseous and surrounding soft tissue structures appear unchanged. Cardiac pacemaker apparatus appears unchanged. IMPRESSION: As above. PROCEDURE INTERPRETED AT [facility] DEPARTMENT OF RADIOLOGY Final Report Signed by: Dr Shane Calhoun
[2016-12-12] MEDS: cefTRIAXone 2,000 MG in SODIUM CHLORIDE 0.9% 100 ML IV SCH (09:37)
[2016-12-12] MEDS: ATORVASTATIN 20 MG TABLET PO SCH (09:45)
[2016-12-12] MEDS: APIXABAN 2.5 MG TABLET PO SCH ×2 (09:45→22:57)
[2016-12-12] MEDS: DESITIN 4OZ/NYSTATIN 15 GRAM MIXTURE PASTE TOP SCH ×2 (09:45→22:56)
[2016-12-12] MEDS: DOCUSATE SODIUM 100 MG CAPSULE PO SCH ×2 (09:46→22:56)
[2016-12-12] MEDS: CALCIUM (CITRATE) 200 MG TABLET PO SCH ×2 (09:50→22:56)
--- NOTE | 2016-12-12 12:02 | Hospitalist Progress Note ---
Assessment and Plan - Time spent with patient Time spent with patient: Greater than 30 minutes (1) Hypotension Status: Acute Assessment and plan: Will administer albumin. Holding BP meds. Current Visit: Yes (2) Pleural effusion Status: Acute Assessment and plan: S/P thoracentesis. Etiology is unclear though may be related to liver pathology and or CHF. Current Visit: Yes (3) Diastolic CHF, acute on chronic Status: Acute Assessment and plan: Holding BP meds and lasix due to BP. Current Visit: Yes (4) Paroxysmal atrial fibrillation Status: Chronic Assessment and plan: Continue anti-coagulation. Current Visit: No (5) Thrombocytopenia Status: Chronic Assessment and plan: Stable. Current Visit: No (6) UTI (urinary tract infection) Status: Acute Assessment and plan: Start antibiotics. Current Visit: Yes (7) Liver lesion Status: Acute Assessment and plan: I spoke to the son today regarding the liver lesion. He states he does not want any further workup. I agree given her age and comorbidities. Current Visit: Yes Hospitalist: Subjective Interval history: CT yesterday revealed pleural effusion. S/P right thoracentesis this morning. BP has been in the 70s systolics this morning. Exam - Constitutional Vitals: Period Temp Pulse Resp BP Sys/Andino Pulse Ox Last 24 Hr 97.6 F-98.7 F 60-61 18-24 117-161/62-88 91-95 General appearance: no acute distress - Head Head exam: Present: normal inspection, normocephalic, atraumatic - Eye Eye exam: Present: EOMI Pupils: Present: NILE - ENT ENT exam: Present: normal exam - Neck Neck exam: Present: normal inspection - Respiratory Respiratory exam: Present: decreased breath sounds, other (coarse crackles bilaterally). Absent: rhonchi, wheezes - Cardiovascular Cardiovascular exam: Present: regular rate and rhythm. Absent: gallop, rubs, systolic murmur - GI/Abdominal GI/Abdominal exam: Present: normal bowel sounds, soft. Absent: distended, firm , guarding, tenderness, rebound - Extremities Exam Extremities exam: Present: normal inspection. Absent: calf tenderness, edema Results - Labs CBC & BMP: 12/12/16 05:52 12/12/16 05:52 Lab Results: I have reviewed the past 24 hour labs Quality Measures - VTE Deep Vein Thrombosis/Pulmonary Embolism Present on Admission: No
--- NOTE | 2016-12-12 17:56 | ECHO Report ---
Hollie Higgins Exam Date: 12/12/2016 15:47 Referring Physician: Technologist: Nicky Pelaez Age: 76 Ht (in): 66 Wt (lb): 163 Gender: F Exam Location: [facility] Echo Indications: elevated troponin, CHF, UTI BP: 161 / 88 HR: 61 Rhythm: Sinus Technical Quality: IMPRESSIONS Suggests 3+ left atrial enlargement, and grossly 1-2+ right ventricular enlargement 2+ concentric LVH Hyperdynamic LV systolic function with ejection fraction of 70% Mitral annular calcification is severe, with 1+ mitral regurgitation Aortic sclerosis without stenosis Probable 3+ tricuspid regurgitation with RV pacing wire noted, and RVSP 31 mmHg plus RAP MEASUREMENTS (Male / Female) Normal Values 2D ECHO LV Diastolic Diameter PLAX 3.5 cm 4.2 - 5.9 / 3.9 - 5.3 cm LV Systolic Diameter PLAX 2.3 cm LV Fractional Shortening PLAX 34.5 % IVS Diastolic Thickness 1.7 cm 0.6 - 1.0 / 0.6 - 0.9 cm LVPW Diastolic Thickness 1.3 cm 0.6 - 1.0 / 0.6 - 0.9 cm RV Internal Dim ED PLAX 3.0 cm Aortic Root Diameter 2.8 cm LA Systolic Diameter LX 4.0 cm 3.0 - 4.0 / 2.7 - 3.8 cm DOPPLER TR Peak Velocity 280.0 cm/s TR Peak Gradient 31.4 mmHg FINDINGS Left Ventricle Severely increased septal wall thickness. Mildly increased posterior wall thickness. Moderate concentric left ventricular hypertrophy with diastolic dysfunction. Left ventricular ejection fraction is estimated at Right Ventricle Moderate increased right ventricular size. Right Atrium Moderately increased right atrial size. Left Atrium Mildly increased left atrial diameter. Mitral Valve Mild mitral valve sclerosis. Moderate mitral valve regurgitation. Aortic Valve Aortic valve sclerosis without stenosis. Tricuspid Valve Morphologically normal tricuspid valve. Moderate tricuspid valve regurgitation. Tricuspid regurgitation velocities suggest a PAP of 31.4 mmHg + RAP. Pulmonic Valve Pulmonic valve not well visualized. Mild pulmonary valve regurgitation. Pericardium No pericardial effusion. + pleural effusion. Aorta Normal size aortic root and proximal ascending aorta. Lane Vaughan (Electronically Signed) Final Date: 12 Dec 2016 17:55
[2016-12-13 06:16] LABS: Basophils % 0.4 % (0.0-0.8); Eosinophils # 0.4 10*3/uL (0.0-0.87); Eosinophils % 8.3 % (0.00-10.9); Hematocrit 31.5 VOL% (35.7-47.0); Hemoglobin 10.1 GM/DL (12.0-16.0); Immature Granulocytes % 0.2 %; Immature Granulocytes Absolute 0.01 #; Lymphocytes # 1.4 10*3/uL (1.4-4.0); Lymphocytes % 26.5 % (21.3-54.2); Mean Corpuscular HGB Conc 32.1 GM/DL (32-36); Mean Corpuscular Hemoglobin 32 PG (27-34); Mean Corpuscular Volume 100.3 FL (87-102); Mean Platelet Volume 12.7 FL (9.6-12.0); Monocytes # 0.6 10*3/uL (0.11-0.8); Monocytes % 11.8 % (1.7-12.7); Neutrophils # 2.7 10*3/uL (1.4-7.4); Neutrophils % 52.8 % (38.7-73.9); Platelet Count 78 T/CUMM (130-400); Red Blood Count 3.14 MC/CUMM (3.8-5.5); Red Cell Distribution Width 17.8 % (9.3-17.3); White Blood Count 5.1 T/CUMM (4-12)
[2016-12-13 06:46] LABS: Band Neutrophils 3 % (0-10); Eosinophils 2 % (0-10); Lymphocytes 22 % (20-55); Segmented Neutrophils 60 % (50-85); Total Cells Counted 100
[2016-12-13 06:47] LABS: Macrocytosis 1+; Platelet Estimate Decreased
[2016-12-13 06:48] LABS: Calcium 9.6 MG/DL (8.5-10.1); Osmolality,Calculated 297.1 MOS/KG (273-304); Potassium 4.1 MMOL/L (3.5-5.1)
--- NOTE | 2016-12-13 08:37 | Pulmonology Progress Note ---
Pulmonary - PN: Subj Interval history: This 76-year-old white female has some dementia. She has developed a large right pleural effusion. The CT scan shows it to be very large with compression of the right lung. We will plan thoracentesis this morning. If the lung does not expand with the thoracentesis then I will need to do a bronchoscope tomorrow. CT scan also suggested a liver lesion. This might well be metastatic disease but we do not have any definitive diagnosis as yet. 12/13/2016 she continues to be short of breath at rest. The pleural fluid appears to be transudative. This would point more toward congestive heart failure. She does of course still have the lesion noted in her liver. Her blood pressure is on the low side which makes it difficult to diurese her. I think cardiology evaluation may be helpful. I note that plans are being made for hospice care. Exam (Progress Note) - Constitutional Vitals: Period Temp Pulse Resp BP Sys/Andino Pulse Ox Last 24 Hr 97.8 F 60-68 20-20 79-84/44-45 96 Exam: Patient is alert and somewhat confused. Vital signs normal. O2 sat 95% on nasal oxygen. Respiratory rate is about 28. Pupils were reactive. Throat clear. Neck supple no bruits. Chest reveals decreased breath sounds on the right side and dullness over her lower right lung. Left lung shows some dullness of the left base and a few rales. Heart normal rate and rhythm no murmurs. Abdomen soft nontender she does have flank edema. Extremities she has 2+ peripheral edema calves nontender. Results - Labs CBC & BMP: 12/13/16 04:36 12/13/16 04:36 Lab Results: I have reviewed the past 24 hour labs Labs: Pleural fluid had a low LDH normal glucose level, lowtotal protein. Few white cells and they were mostly lymphocytes. This would all fit with a transudate. - Diagnostic Findings Procedure: Chest x-ray: image reviewed by me (Postthoracentesis chest x-ray shows the right lung about long term open. I do not think a bronchoscopy would be helpful at present.) Assessment and Plan (1) Pleural effusion Status: Acute Assessment and plan: She has bilateral pleural effusions worse on the right side. Not sure how much of the opacification of the right lung is due to this. Will obtain a noncontrast chest CT and decide whether she needs a thoracentesis or possible bronchoscopy. 12/12/2016 has a very large right effusion and small left effusion. Will plan right thoracentesis this morning. I am suspicious of metastatic disease. 12/13/2016 transudative right pleural effusion suggest congestive heart failure. Can also be seen in chronic liver or kidney disease especially nephrotic syndrome. Current Visit: Yes (2) Congestive heart failure Status: Chronic Assessment and plan: We need to check an echocardiogram to evaluate LV function. I do think she has heart failure. BNP was markedly elevated on admission. Has not been rechecked. She is not getting daily weights. 12/12/2016 she did not respond to diuretics very well. The pleural fluid may all be related to a malignant process. Hopefully we will get an answer from thoracentesis. Echo is pending as well. 12/13/2016 she has a hyperdynamic left ventricle on echo but I wonder if she does not have subaortic stenosis or something of that nature causing her congestive heart failure. Would suggest cardiology evaluation. Current Visit: No (3) History of cerebrovascular accident Status: Resolved Assessment and plan: Might have some difficulty with swallowing. Earlier today she was eating normally. Concerned about possible aspiration. 12/13/2016 speech is somewhat garbled. Current Visit: No
[2016-12-13] MEDS: DOCUSATE SODIUM 100 MG CAPSULE PO SCH ×2 (08:54→21:33)
[2016-12-13] MEDS: CALCIUM (CITRATE) 200 MG TABLET PO SCH ×2 (08:54→21:33)
[2016-12-13] MEDS: ATORVASTATIN 20 MG TABLET PO SCH (08:55)
[2016-12-13] MEDS: CARVEDILOL 6.25 MG TABLET PO SCH (08:55)
[2016-12-13] MEDS: SPIRONOLACTONE 25 MG TABLET PO SCH (08:55)
[2016-12-13] MEDS: APIXABAN 2.5 MG TABLET PO SCH ×2 (08:55→21:33)
[2016-12-13] MEDS: FUROSEMIDE 40 MG/4 ML VIAL IV SCH (08:56)
[2016-12-13] MEDS: cefTRIAXone 2,000 MG in SODIUM CHLORIDE 0.9% 100 ML IV SCH (09:02)
[2016-12-13] MEDS: DESITIN 4OZ/NYSTATIN 15 GRAM MIXTURE PASTE TOP SCH ×2 (09:10→21:33)
--- NOTE | 2016-12-13 15:33 | Hospitalist Progress Note ---
Assessment and Plan - Time spent with patient Time spent with patient: Greater than 30 minutes (1) Hypotension Status: Acute Assessment and plan: Decrease coreg to 3.125 from 6.25. Nursing staff has not obtained BP today. Will ask them to do so. Current Visit: Yes (2) Pleural effusion Status: Acute Assessment and plan: S/P thoracentesis. Etiology is unclear though may be related to liver pathology and or CHF. Current Visit: Yes (3) Diastolic CHF, acute on chronic Status: Acute Assessment and plan: Continue current treatment. Will consult Cards. Current Visit: Yes (4) Paroxysmal atrial fibrillation Status: Chronic Assessment and plan: Continue anti-coagulation. Current Visit: No (5) Thrombocytopenia Status: Chronic Assessment and plan: Stable. Current Visit: No (6) UTI (urinary tract infection) Status: Acute Assessment and plan: Start antibiotics. Current Visit: Yes (7) Liver lesion Status: Acute Assessment and plan: I spoke to the son today regarding the liver lesion. He states he does not want any further workup. I agree given her age and comorbidities. Current Visit: Yes Hospitalist: Subjective Interval history: No complaints. Exam - Constitutional Vitals: Period Temp Pulse Resp BP Sys/Andino Pulse Ox Last 24 Hr 20-24 General appearance: no acute distress - Head Head exam: Present: normocephalic, atraumatic - Eye Eye exam: Present: EOMI Pupils: Present: NILE - ENT ENT exam: Present: normal exam - Neck Neck exam: Present: normal inspection - Respiratory Respiratory exam: Present: decreased breath sounds (rigth side), other (coarse BS bilaterally). Absent: rhonchi, wheezes - Cardiovascular Cardiovascular exam: Present: regular rate and rhythm. Absent: gallop, rubs, systolic murmur - GI/Abdominal GI/Abdominal exam: Present: normal bowel sounds, soft. Absent: distended, firm , guarding, tenderness, rebound - Extremities Exam Extremities exam: Present: normal inspection. Absent: calf tenderness, edema Results - Labs CBC & BMP: 12/13/16 04:36 12/13/16 04:36 Lab Results: I have reviewed the past 24 hour labs Quality Measures - VTE Deep Vein Thrombosis/Pulmonary Embolism Present on Admission: No
--- NOTE | 2016-12-13 17:21 | Cardiology Consult Note ---
I, Edith Dutton RN, am scribing for, and in the presence of, Lane Espinoza MD 16:30. Assessment and Plan - Time spent with patient Time spent with patient: Greater than 30 minutes (due to assesment, planning, documentation, and medication review) (1) Diastolic CHF, acute on chronic Status: Acute Assessment and plan: INITIAL CONSULT DECEMBER 13, 2016: ASSESSMENT/PLAN: 1. 76-year-old WF with control hypertension, very remote smoking history, COPD , dyslipidemia, third-degree AV block, with probable chronic atrial fibrillation and previous episodes of RVR status post pacemaker placement 2005 ( generator change 7 11/09/2014 with 100% AV pacing previously), status post significant stroke October 2015 with improving, who I saw last month she had abnormal chest x-ray with BNP of thousand and was treated for some diastolic heart failure 2. Echocardiogram in the hospital October 2016 shows EF 55% with 2+ LVH and 23+ left atrial enlargement with RVSP 31+ RAP 3. Large pleural effusion improved since thoracentesis, with some persistent dyspnea at rest "feel a lot better" 4. Given her hypotension, change Coreg to Toprol 12.5 mg twice daily; she is in sinus rhythm (previously in atrial fibrillation) 5. Prerenal azotemia with some dehydration; discontinue Lasix 6. AAA with recent ultrasound showing only 3.7 to 3.9 cm diameter 7. We will continue his prolactin for now for diastolic dysfunction 8. History of venous insufficiency with recent left lower extremity venous ulcer healed 9. Ejection fraction is 70%, with underfilled ventricle probably related to some dehydration. 10. Chronic thrombocytopenia previously noted 11. History of frequent RV pacing Current Visit: Yes (2) Pancytopenia Status: Acute Current Visit: Yes (3) Hypotension Status: Acute Current Visit: Yes (4) Liver lesion Status: Acute Current Visit: Yes (5) Pleural effusion Status: Acute Current Visit: Yes (6) UTI (urinary tract infection) Status: Acute Current Visit: Yes (7) Abdominal aortic aneurysm (AAA) without rupture Status: Chronic Current Visit: No (8) COPD (chronic obstructive pulmonary disease) Status: Chronic Current Visit: No (9) History of supraventricular tachycardia Status: Chronic Current Visit: No (10) Hyperlipidemia Status: Chronic Current Visit: No (11) Hypertension Status: Chronic Current Visit: No (12) Paroxysmal atrial fibrillation Status: Chronic Current Visit: No (13) S/P placement of cardiac pacemaker Status: Chronic Current Visit: No (14) History of cerebrovascular accident Status: Resolved Current Visit: No History of Present Illness - Data of Consult Patient: known to practice within the last 3 years Consult date: 12/13/16 Requesting Physician: Yani Kenney - Consult Narrative Reason for consult: dyspnea, diastolic CHF History of present illness: PRIMARY RIVER RAFTING GUIDE: DR. ALEXUS ESPINOZA PCP: [facility] CONSULT NOTE: DIASTOLIC CHF Ms. Higgins is a 76 year old white female routinely followed by cardiology. Risk factors include: hypertension, dyslipidemia, known CAD. Past medical history significant for paroxysmal atrial fibrillation, SVT, COPD, CHF, liver cirrhosis, abdominal aortic aneurysm (stable), third degree AVB s/p dual chamber pacemaker placement 2005, and CVA. She was recently admitted to [facility] in November 2016 and treated for pneumonia. She also had an increase of dyspnea on exertion, chest x-ray findings and BNP greater than 1,000. Echocardiogram showed normal LV systolic function with EF 65%, 1+ mitral regurgitation, 1-2+ tricuspid regurgitation, RVSP 23 mmHg + RAP. Patient treated for diastolic congestive heart failure, diuresed well, and felt dramatically better at that time. During that admission, thrombocytopenia was noted with platelet count as low as 56,000 and improved to 74,000 at discharge. Hematology evaluated the patient, and Dr. Thornton felt it to be not life threatening. Ms. Higgins was discharged back to her longterm facility on . Patient presented again to [facility] ER from longterm on 12/05 with complaints or shortness of breath and increasing dyspnea on exertion with onset approximately 1 week prior. Also admitted to some weight gain. She was admitted to medr floor per hospital medicine for further treatment of acute on chronic diastolic CHF and bilateral pleural effusions. She has been diuresed as tolerated with favorable results and improvement in pulmonary edema on chest x-ray also seen. Some concern over chest x-ray findings, specifically right chest opacifications and CT chest obtained to rule out pleural fluid versus atelectasis. CT chest revealed large amount right pleural fluid, mild left pleural fluid with possible neoplasm, and also found to have 5.3 mm liver lesion with mild ascites. Right thoracentesis on 12/[address] Morfin with removal of 1,500 mls cloudy straw-colored fluid. Noted to be transudative. Patient remains short of breath, has become hypotensive with SBP 70s-80s, creatinine and GFR have consecutively trended upward (currently 1.6 and 36 respectively), and cardiology has now been consulted for further evaluation. It is noted, that admission, she had a urine culture positive for E. coli, and UTI has been treated. Echocardiogram 12/12 3+ left atrial enlargement, 1-2+ RV enlargement, and 3+ tricuspid regurgitation with RVSP 31 mmHg + RAP. Of note, patient has dementia also, and ROS is unobtainable. HPI gathered from chart and previous medical records. Patient is also being evaluated for hospice care at discharge. Upon exam, Ms. Higgins is awake and is somewhat confused. Due to previous stroke with residual speech difficulty, her speech is somewhat garbled and can be difficult to understand. She is able to tell me she does not feel like she is breathing well at all. Patient is noted to be tachypneic with respiratory rate 30 rpm. Currently receiving supplemental oxygen via nasal cannula 2 L minute. Denies chest pain or discomfort at this time. Skin is warm and dry. Current BP is 80/40. CC: Yani Kenney MD - Home Medications and Allergies Home Medications: Home Medications Medication Instructions Recorded Confirmed Type Calcium (Citrate) [Citracal] 600 mg PO BID 07/06/15 12/05/16 History Multivitamin [One Daily] 1 each PO DAILY 07/06/15 12/05/16 History Potassium Chloride [Klor-Con M20] 10 meq PO DAILY 10/21/15 12/05/16 History Apixaban [Eliquis] 2.5 mg PO BID 10/11/16 12/05/16 History Atorvastatin [Lipitor] 20 mg PO DAILY 10/11/16 12/05/16 History Acetaminophen Tab [Tylenol Tab] 325 mg PO Q4H PRN #0 tablet 10/15/16 12/05/16 Rx Carvedilol 6.25 mg PO BID #0 10/15/16 12/05/16 Rx Docusate Sodium Cap [Colace Cap] 100 mg PO BID capsule 10/15/16 12/05/16 Rx Furosemide 40 mg PO DAILY #0 10/15/16 12/05/16 Rx Pantoprazole Tab [Protonix Tab] 40 mg PO DAILY tablet 10/15/16 12/05/16 Rx Spironolactone [Aldactone] 25 mg PO DAILY #30 tablet 11/21/16 12/05/16 Rx Allergies/Adverse Reactions: Allergies Allergy/AdvReac Type Severity Reaction Status Date / Time Gatifloxacin [From Tequin] Allergy Mild Dizziness Verified 12/05/16 12:36 trandolapril Allergy Mild Dizziness Verified 12/05/16 12:36 Verapamil Allergy Mild Dizziness Verified 12/05/16 12:36 ROS unobtainable: due to dementia Medical,Surgical,& Family Hx - Medical History Cardio: History of: Cardiac Dysrhythmia, CHF, Hypertension, Pacemaker, Cardiovascular Problems (DR ESPINOZA, MEDICAL RECORD HAS AAA DR NGO FOLLOWING) Neurology: History of: Cerebrovascular Accident No history of: Seizures HEENT: History of: Eye Problem (GLASSES), Dental Problems Endocrine: History of: Dyslipidemia, Thyroid Disorder Respiratory: History of: COPD Genitourinary: History of: Bladder Problem Gastrointestinal: History of: Liver Problems (LIVER MASS, LIVER CIRRHOSIS) Musculoskeletal: History of: Back/Neck Problems (4 BROKEN VERTEBRAE), Osteoporosis, Musculoskeletal Problems (BROKEN RIGHT HIP) - Surgical History HEENT Surgeries: Surgical HX of: Thyroid Surgery (PARATHYROID REMOVED) Abdominal Surgeries: Surgical HX of: Abdominal Surgery, Appendectomy, Colonoscopy Reproductive Surgeries: Surgical HX of;: Gynecologic Surgery, Hysterectomy Orthopedic Surgeries: Surgical HX of;: Orthopedic Surgery (ORIF of right femur fracture), Total Knee Replacement (LEFT KNEE) - Family History Family History: Reports;: Family Cancer (MOTHER) - Social History Smoking Status: Former smoker Frequency of Alcohol Use: None Type of Drug Use: None Physical Examination Vital Signs Temp Pulse Resp BP Pulse Ox 97.5 F L 84 26 H 117/72 97 12/05/16 12:25 12/05/16 12:25 12/05/16 12:25 12/05/16 12:25 12/05/16 12:25 General: Present: Other (Frail, appears chronically ill) Neck: Present: Midline Trachea, No Bruit, Other (Elevated neck veins) Cardiac: Present: Regular Rhythm. Absent: Tachycardia, Bradycardia Lungs: Present: Decreased Breath Sounds, No Wheeze, Rales, Rhonchi Neuro: Present: Weakness. Absent: Numbness, Resting Tremor, Essential Tremor Abdomen: Present: Soft, Active Bowel Sounds. Absent: Ascites, Tender Skin: Present: Bruising (Ecchymotic bruising to bilateral upper extremity). Absent: Rash, Suspicious Lesions Musculoskeletal: Present: Decreased Range of Motion Extremities: Present: No Clubbing, No Cyanosis, No Edema, Normal Upper Extr. Pulses (Plus bilaterally), Normal Lower Extr. Pulses (1-2+ bilaterally) Result/EKG - Labs CBC & BMP: 12/13/16 04:36 12/13/16 04:36 Lab Results: I have reviewed the past 24 hour labs Labs: Laboratory Results - last 24 hr 12/13/16 12/13/16 04:36 04:36 WBC 5.1 RBC 3.14 L Hgb 10.1 L Hct 31.5 L MCV 100.3 MCH 32 MCHC 32.1 RDW 17.8 H Plt Count 78 L MPV 12.7 H Neut % (Auto) 52.8 Lymph % (Auto) 26.5 [place] % (Auto) 11.8 Eos % (Auto) 8.3 Baso % (Auto) 0.4 Neut # (Auto) 2.7 Lymph # (Auto) 1.4 [place] # (Auto) 0.6 Eos # (Auto) 0.4 Baso # (Auto) 0.0 Total Counted 100 Immature Gran % 0.2 Nucleated RBC % 0.0 Immature Gran # 0.01 Segmented Neutrophils 60 Band Neutrophils 3 Lymphocytes 22 Monocytes 13 Eosinophils 2 Nucleated RBCs # 0.00 Platelet Estimate Decreased Macrocytosis 1+ Sodium 142 Potassium 4.1 Chloride 104 Carbon Dioxide 30 Anion Gap 12.1 BUN 58 H D Creatinine 1.60 H GFR Calculation 32 BUN/Creatinine Ratio 36.00 H Glucose 84 Calculated Osmolality 297.1 Calcium 9.6 - Diagnostic Findings Procedure: Chest x-ray: report reviewed by me, image reviewed by me (12/12/16: Decrease in diffuse bilateral opacification suggestive of improved pulmonary edema. Improved right pleural effusion now moderate in size. Small left pleural effusion.) - EKG EKG results: interpreted by me, no acute changes (AV sequential pace; underlying A. fib) Quality Measures - VTE Deep Vein Thrombosis/Pulmonary Embolism Present on Admission: No Clement Bryan Randall Scott, MD, personally performed the services described in this documentation, ascribed by Edith Dutton RN in my presence, and it is both accurate and complete .
[2016-12-13] MEDS ORDERED: CARVEDILOL 3.125 MG TABLET PO SCH (21:00)
[2016-12-13] MEDS: METOPROLOL SUCCINATE XL 25 MG TABLET PO SCH (21:33)
[2016-12-14 05:24] LABS: Basophils % 0.5 % (0.0-0.8); Eosinophils # 0.1 10*3/uL (0.0-0.87); Eosinophils % 2.3 % (0.00-10.9); Hematocrit 36.5 VOL% (35.7-47.0); Hemoglobin 11.8 GM/DL (12.0-16.0); Immature Granulocytes % 0.7 %; Immature Granulocytes Absolute 0.04 #; Lymphocytes # 1.2 10*3/uL (1.4-4.0); Lymphocytes % 19.8 % (21.3-54.2); Mean Corpuscular HGB Conc 32.3 GM/DL (32-36); Mean Corpuscular Hemoglobin 32 PG (27-34); Mean Corpuscular Volume 99.7 FL (87-102); Mean Platelet Volume 11.3 FL (9.6-12.0); Monocytes # 0.4 10*3/uL (0.11-0.8); Monocytes % 6.8 % (1.7-12.7); Neutrophils # 4.3 10*3/uL (1.4-7.4); Neutrophils % 69.9 % (38.7-73.9); Platelet Count 102 T/CUMM (130-400); Red Blood Count 3.66 MC/CUMM (3.8-5.5); Red Cell Distribution Width 17.2 % (9.3-17.3); White Blood Count 6.2 T/CUMM (4-12)
[2016-12-14 05:59] LABS: Calcium 10.7 MG/DL (8.5-10.1); Magnesium 1.7 MG/DL (1.8-2.4); Osmolality,Calculated 299.1 MOS/KG (273-304); Potassium 4.2 MMOL/L (3.5-5.1)
[2016-12-14 08:44] VITALS: BP 139/65
[2016-12-14] MEDS: ATORVASTATIN 20 MG TABLET PO SCH (08:45)
[2016-12-14] MEDS: APIXABAN 2.5 MG TABLET PO SCH (08:45)
[2016-12-14] MEDS: METOPROLOL SUCCINATE XL 25 MG TABLET PO SCH (08:45)
[2016-12-14] MEDS: SPIRONOLACTONE 25 MG TABLET PO SCH (08:45)
[2016-12-14] MEDS: DOCUSATE SODIUM 100 MG CAPSULE PO SCH (08:45)
[2016-12-14] MEDS: CALCIUM (CITRATE) 200 MG TABLET PO SCH (08:45)
[2016-12-14] MEDS: DESITIN 4OZ/NYSTATIN 15 GRAM MIXTURE PASTE TOP SCH (09:03)
[2016-12-14] MEDS: cefTRIAXone 2,000 MG in SODIUM CHLORIDE 0.9% 100 ML IV SCH (09:04)
--- NOTE | 2016-12-14 09:47 | XRay Report ---
XR chest 1V portable Indication: Pleural effusion Comparison: 12 Dec 2016 Findings: The heart and mediastinum are similar in size and configuration. Pacemaker device is unchanged in position. The pulmonary vascularity is increased. There is increased right lung density and effusion with multiple fractures. No other lung infiltrates, effusions, pneumothorax or other abnormality is demonstrated. Impression: Increased vascularity, could indicate cardiac decompensation. Increased right lung density and effusion. PROCEDURE INTERPRETED AT [facility] DEPARTMENT OF RADIOLOGY Final Report Signed by: Dr. Devang Andujar
[2016-12-14] MEDS ORDERED: MORPHINE 2 MG/1 ML SYRINGE IV PRN (10:12)
--- NOTE | 2016-12-14 10:42 | Cardiology Progress Note ---
Assessment and Plan (1) Diastolic CHF, acute on chronic Status: Acute Assessment and plan: INITIAL CONSULT DECEMBER 13, 2016: ASSESSMENT/PLAN: 1. 76-year-old WF with control hypertension, very remote smoking history, COPD , dyslipidemia, third-degree AV block, with probable chronic atrial fibrillation and previous episodes of RVR status post pacemaker placement 2005 ( generator change 7 11/09/2014 with 100% AV pacing previously), status post significant stroke October 2015 with improving, who I saw last month she had abnormal chest x-ray with BNP of thousand and was treated for some diastolic heart failure 2. Echocardiogram in the hospital October 2016 shows EF 55% with 2+ LVH and 23+ left atrial enlargement with RVSP 31+ RAP 3. Large pleural effusion improved since thoracentesis, with some persistent dyspnea at rest "feel a lot better" 4. Given her hypotension, change Coreg to Toprol 12.5 mg twice daily; she is in sinus rhythm (previously in atrial fibrillation) 5. Prerenal azotemia with some dehydration; discontinue Lasix 6. AAA with recent ultrasound showing only 3.7 to 3.9 cm diameter 7. We will continue his prolactin for now for diastolic dysfunction 8. History of venous insufficiency with recent left lower extremity venous ulcer healed 9. Ejection fraction is 70%, with underfilled ventricle probably related to some dehydration. 10. Chronic thrombocytopenia previously noted 11. History of frequent RV pacing December 14 update: 1. Ms. Higgins is now unconscious and hypotensive 2. DNR/comfort care. Current Visit: Yes (2) Pancytopenia Status: Acute Current Visit: Yes (3) Hypotension Status: Acute Current Visit: Yes (4) Liver lesion Status: Acute Current Visit: Yes (5) Pleural effusion Status: Acute Current Visit: Yes (6) UTI (urinary tract infection) Status: Acute Current Visit: Yes (7) Abdominal aortic aneurysm (AAA) without rupture Status: Chronic Current Visit: No (8) COPD (chronic obstructive pulmonary disease) Status: Chronic Current Visit: No (9) History of supraventricular tachycardia Status: Chronic Current Visit: No (10) Hyperlipidemia Status: Chronic Current Visit: No (11) Hypertension Status: Chronic Current Visit: No (12) Paroxysmal atrial fibrillation Status: Chronic Current Visit: No (13) S/P placement of cardiac pacemaker Status: Chronic Current Visit: No (14) History of cerebrovascular accident Status: Resolved Current Visit: No Cardiology - PN: Subj Interval history: Ms. Higgins is lost consciousness. She has a pulse but blood pressure is no longer measurable. She is for comfort care/DNR. Exam (Progress Note) - Constitutional Vitals: Period Temp Pulse Resp BP Sys/Andino Pulse Ox Last 24 Hr 97.5 F-98.3 F 24-65 0-24 139-156/65-76 92-97 General appearance: normal weight, other (Unconscious) - Head Head exam: Present: normocephalic, atraumatic - Neck Neck exam: Present: normal inspection - Respiratory Respiratory exam: Present: other (No meaningful respirations) - Cardiovascular Cardiovascular exam: Present: bradycardia, irregular rhythm - GI/Abdominal GI/Abdominal exam: Present: tenderness, soft - Extremities Exam Extremities exam: Present: edema Result/EKG - Labs CBC & BMP: 12/14/16 04:50 12/14/16 04:50 Labs: Laboratory Results - last 24 hr 12/14/16 12/14/16 04:50 04:50 WBC 6.2 RBC 3.66 L Hgb 11.8 L Hct 36.5 MCV 99.7 MCH 32 MCHC 32.3 RDW 17.2 Plt Count 102 L D MPV 11.3 Neut % (Auto) 69.9 Lymph % (Auto) 19.8 L [place] % (Auto) 6.8 Eos % (Auto) 2.3 Baso % (Auto) 0.5 Neut # (Auto) 4.3 Lymph # (Auto) 1.2 L [place] # (Auto) 0.4 Eos # (Auto) 0.1 Baso # (Auto) 0.0 Immature Gran % 0.7 Nucleated RBC % 0.0 Immature Gran # 0.04 Nucleated RBCs # 0.00 Sodium 142 Potassium 4.2 Chloride 104 Carbon Dioxide 30 Anion Gap 12.2 BUN 64 H Creatinine 1.50 H GFR Calculation 35 BUN/Creatinine Ratio 42.00 H Glucose 81 Calculated Osmolality 299.1 Calcium 10.7 H Magnesium 1.7 L Quality Measures - VTE Deep Vein Thrombosis/Pulmonary Embolism Present on Admission: No
--- NOTE | 2016-12-14 11:06 | Discharge Summary ---
Hospital Course - Hospital Course Hospital Course: Note: Ms Higgins was admitted for evaluation of shortness of breath. She was found to have acute on chronic congestive heart failure and a urinary tract infection. She was diuresed with adequate improvement in her symptoms. Serial chest x-rays, however, revealed a worsening right-sided opacification. 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 Pulmonary performed a thoracentesis with improvement in the patient's symptoms of shortness of breath. Cardiology was consulted for further recommendations regarding her congestive heart failure. I spoke with the son regarding the findings on the CT and he stated that the patient is DO NOT RESUSCITATE and DO NOT INTUBATE. Patient's status was changed and over the course of next 2 days her condition deteriorated. She required increasing levels of oxygen with decreasing saturations. Son was notified of her worsening condition and opted to make her comfort care. Patient passed at 10:50 AM on the date of this note. Cause of , acute on chronic congestive heart failure. - Time spent with patient Time with patient DS: Greater than 30 minutes - Cause of Cause of : Acute on chronic congestive heart failure Diagnosis - Discharge Diagnosis (1) Hypotension Status: Acute (2) Pleural effusion Status: Acute (3) Diastolic CHF, acute on chronic Status: Acute (4) Paroxysmal atrial fibrillation Status: Chronic (5) Thrombocytopenia Status: Chronic (6) UTI (urinary tract infection) Status: Acute (7) Liver lesion Status: Acute Discharge Plan - Discharge Data Disposition: - Discharge Medications No Action Multivitamin [One Daily] 1 each PO DAILY Calcium (Citrate) [Citracal] 600 mg PO BID Potassium Chloride [Klor-Con M20] 10 meq PO DAILY Atorvastatin [Lipitor] 20 mg PO DAILY Apixaban [Eliquis] 2.5 mg PO BID Docusate Sodium Cap [Colace Cap] 100 mg PO BID capsule Pantoprazole Tab [Protonix Tab] 40 mg PO DAILY tablet Furosemide 40 mg PO DAILY #0 Acetaminophen Tab [Tylenol Tab] 325 mg PO Q4H PRN #0 tablet PRN Reason: fever, headache/body aches Carvedilol 6.25 mg PO BID #0 Spironolactone [Aldactone] 25 mg PO DAILY #30 tablet - Follow Up or Referral - Forms/Instructions Exam - Constitutional Vitals: Period Temp Pulse Resp BP Sys/Andino Pulse Ox Last 24 Hr 97.5 F-98.3 F 24-65 0-24 139-156/65-76 92-97 Discharge Results Procedures and tests throughout hospitalization: Pending Orders 12/12/16 06:20 Cytology Request Routine 12/12/16 07:15 AFB Culture/Smears Routine 12/15/16 04:00 BMP w/ Mg [Basic Metabolic Panel w/Mg] IN AM CBC [Comp Blood Count Auto Diff] IN AM 12/16/16 04:00 BMP w/ Mg [Basic Metabolic Panel w/Mg] IN AM CBC [Comp Blood Count Auto Diff] IN AM Labs on day of discharge: Labs from last 24 hours 12/14/16 12/14/16 04:50 04:50 WBC 6.2 RBC 3.66 L Hgb 11.8 L Hct 36.5 MCV 99.7 MCH 32 MCHC 32.3 RDW 17.2 Plt Count 102 L D MPV 11.3 Neut % (Auto) 69.9 Lymph % (Auto) 19.8 L Haines % (Auto) 6.8 Eos % (Auto) 2.3 Baso % (Auto) 0.5 Neut # (Auto) 4.3 Lymph # (Auto) 1.2 L Haines # (Auto) 0.4 Eos # (Auto) 0.1 Baso # (Auto) 0.0 Immature Gran % 0.7 Nucleated RBC % 0.0 Immature Gran # 0.04 Nucleated RBCs # 0.00 Sodium 142 Potassium 4.2 Chloride 104 Carbon Dioxide 30 Anion Gap 12.2 BUN 64 H Creatinine 1.50 H GFR Calculation 35 BUN/Creatinine Ratio 42.00 H Glucose 81 Calculated Osmolality 299.1 Calcium 10.7 H Magnesium 1.7 L DS: Provider Date of admission: 12/05/16 14:04 Primary care physician: . No PCP Attending physician on admission: Arsh Carias MD Consults: 12/11/16 13:39 Consult to Physician [CONS] Routine Comment: right lung opacification Consulting Provider: Guanako Morfin Consult to Specialist Group: Pulmonology When should Consulting Provider be notified: Now Person Notified: lorraine Date Notified: 12/11/16 Consult Notification Comment: left message and the office called back 12/12/16 11:07 Consult to Physical Therapy [CONS] Routine Reason for Physical Therapy: Evaluate and Treat 12/12/16 12:06 Consult to Case Mgmt/Social Srvs [CONS] Routine Reason for Case Mgmt/Social Srvs: Hospice Referral 12/13/16 09:02 Consult to Physician [CONS] Routine Comment: diastolic CHF Consulting Provider: Cardiology - [facility] Consult to Specialist Group: Cardiology When should Consulting Provider be notified: Now Person Notified: XAVIER Date Notified: 12/13/16 Time Notified: 09:20 Discharging clinician: Yani Kenney MD
== END 2016-12-14 10:50 | disposition expired | DRG 291 ==
LOC: EDUNIT# → EDBD → N.ED 12:25 → SUATTDRO 14:04 → N.EDINP 14:04 → N.2E 15:50
PROVIDERS: ADMIT Internal Medicine; ATTEND Internal Medicine